=== PATIENT | male | born 1930 | race Caucasian/White ===

== ENCOUNTER → 2016-11-01 | Outpatient (CLI) | payer MEDICARE ==
[~2016-11-01] MED LIST: ASP81TEC PO; ATEN25TA PO; LISI20TA PO; LORA0.5T PO; LOVA40TA2 PO; NIFEDICAL XL PO; TRAM-21 PO; TRAM50TA2 PO
--- OUTSIDE RECORDS SUMMARY | 2016-11-01 11:25 | XMS REPORT | Continuity of Care Document ---
Author Author [facility] Organization [facility] Address Unknown Phone Unavailable Care Team Providers Care Forestry Supervisor Name Role Phone XANDER HAGEN MD PCP Insurance Providers Payer Name Policy Number Subscriber Name Relationship Wps Medicare [id number] Axel Richter 18 Self / Same As Patient Blue Cross [facility] Supp [id number] Axel Richter 18 Self / Same As Patient Advance Directives Directive Response Recorded Date/Time Advance Directives No 06/11/14 7:20am Health Care Power of Resource Manager Forester No 06/11/14 7:20am Organ Donor No 06/11/14 7:20am Resuscitation Status Full Code 06/11/14 7:20am Problems No known problems or medical conditions. Medications Medication Dose Route Sig Days/Qty Instructions Order Date Discontinued Date Status Atenolol 1 Each PO DAILY 06/04/13 Active [Nifedical Xl] 30 Mg PO DAILY 06/04/13 Active Lisinopril 20 Mg PO DAILY 06/04/13 Active Lorazepam (Ativan) 1 Each PO BEDTIME 06/04/13 Active Lovastatin (Mevacor) 1 Each PO DAILY WITH SUPPER 06/04/13 Active Aspirin 81 Mg PO DAILY 06/04/13 Active Social History Social History Problem Response Recorded Date/Time Recent Foreign Travel No 06/11/2014 6:12am Smoking Status Former Smoker 06/11/2014 7:20am Query Response Start Date Stop Date Smoking Status Former Smoker 08/26/1974 Hospital Discharge Instructions No hospital discharge instructions. Plan of Care No plan of care. Functional Status No functional status results. Allergies, Adverse Reactions, Alerts Allergen Type Severity Reaction Status Last Updated Penicillins ([id number]) Allergy Active 06/04/13 Codeine Allergy Active 06/04/13 Immunizations Name Given Type Date of Influenza Vaccine 06/07/14 Historical Vital Signs Acute Vital Signs Vital Response Date/Time Temperature (Fahrenheit) 96.4 degrees F (97.6 - 99.5) Temperature (Calculated Celsius) 35.37234 degrees C (36.4 - 37.5) Temperature Source Tympanic Pulse Rate (adult) 64 bpm (60 - 90) Respiratory Rate 16 bpm (12 - 24) O2 Sat by Pulse Oximetry 97 % (88 - 100) Blood Pressure 157/83 mm Hg Pain Pain Intensity 3 Height (Feet) 5 feet Height (Inches) 11.00 inches Height (Calculated Centimeters) 180.383490 cm Weight (Pounds) 169 pounds Weight (Calculated Grams) 47853.111 gm Weight (Calculated Kilograms) 76.475628 kilograms Calculated BMI 22.31 Results Test Source Date Result Interp. Ref. Range Comments MRSA Screen Nasal June 04, 2013 9:05am MRSA not isolated Procedures Procedure Status Date Provider(s) Excision of lesion completed 06/11/14 CM BUI MD Encounters Encounter Location Date/Time Registered Clinic [facility] 06/04/14 10:40am Registered Clinic [facility] 05/17/14 11:46am
[2016-11-01 11:35] LABS: BASOPHILS # (AUTO) 0.1 10^3/uL (0.0-0.1); BASOPHILS % (AUTO) 1 % (0-10); EOSINOPHILS # (AUTO) 0.7 10^3/uL (0.0-0.3); EOSINOPHILS % (AUTO) 7 % (0-10); LYMPHOCYTES # (AUTO) 4.5 X 10^3 (1.0-4.0); LYMPHOCYTES % (AUTO) 45 % (12-44); MEAN CORPUSCULAR HEMOGLOBIN 31 PG (25-34); MEAN CORPUSCULAR HGB CONC 33 G/DL (32-36); MEAN CORPUSCULAR VOLUME 92 FL (80-99); MONOCYTES # (AUTO) 0.8 X 10^3 (0.0-1.0); MONOCYTES % (AUTO) 8 % (0-12); NEUTROPHILS # (AUTO) 3.9 X 10^3 (1.8-7.8); NEUTROPHILS % (AUTO) 40 % (42-75); PLATELET COUNT 233 10^3/uL (130-400); RED BLOOD COUNT 4.54 10^6/uL (4.35-5.85); RED CELL DISTRIBUTION WIDTH 13.7 % (10.0-14.5); WHITE BLOOD COUNT 9.9 10^3/uL (4.3-11.0)
[2016-11-01 11:38] LABS: PATH WILL NEED TO REVIEW SMEAR PATH TO REVIEW
[2016-11-01 11:58] LABS: BAND NEUTROPHILS 2 %; BASOPHILS % (MANUAL) 1 %; EOSINOPHILS % (MANUAL) 5 %; LYMPHOCYTES % (MANUAL) 45 %; NEUTROPHILS % (MANUAL) 40 %; REACTIVE LYMPHOCYTES 1 %
== END ==
LOC: LAB 11:16
PROVIDERS: ATTEND Internal Medicine
DX: D72.829 Elevated white blood cell count, unspecified (principal)
CPT/HCPCS: 36415; 85007; 85027; 85045

== ENCOUNTER → 2017-11-21 | Outpatient (CLI) | payer MEDICARE ==
[~2017-11-21] MED LIST changes: +CATHETER FLUSH 10 ML SYR IV PRN; +REGADENOSON 0.4 MG/5 ML SYR (LEXISCAN) IV ONE
[2017-11-21 09:25] VITALS: BP 160/87
[2017-11-21 09:33] VITALS: BP 133/75
--- NOTE | 2017-11-21 14:07 | STRESS TEST ---
DATE OF SERVICE: 11/21/2017 PROCEDURE PERFORMED: Resting and post regadenoson technetium-99m Tetrofosmin SPECT CT imaging. ORDERING PHYSICIAN: Brit Manzano MD, ANTHONY, JIMMY, FACC. PRIMARY PHYSICIAN: Dr. Avalos. CLINICAL DIAGNOSES: Premature ventricular contractions, abnormal electrocardiogram. DESCRIPTION OF PROCEDURE: Baseline images were carried out after injection of 10.46 mCi technetium-99m Tetrofosmin. This was followed by 0.4 mcg regadenoson and 28.8 mCi technetium-99m Tetrofosmin for stress imaging. The electrocardiogram showed sinus rhythm with isolated premature ventricular contractions throughout the study. The electrocardiogram did not change significantly with the regadenoson infusion. The patient had mild shortness of breath and stomach discomfort following regadenoson infusion, which resolved in a few minutes. Review of images at rest and following stress indicates an inferoseptal defect that is seen both at rest and following regadenoson infusion and is probably related to diaphragmatic attenuation. Gated images show normal global systolic function, normal regional wall motion, including the inferoseptal wall. Left ventricular ejection fraction is 54%. Left ventricular end diastolic volume is 72 mL. TID is absent (1.03). CONCLUSIONS: 1. No evidence of significant myocardial ischemia or infarction on this study. 2. Normal regional wall motion. 3. Normal global left ventricular systolic function with a calculated ejection fraction of 54%. Job ID: [id number] DocumentID: [id number] Dictated Date: 11/21/2017 13:52:10 Negative Stripper Date: 11/21/2017 14:06:31 Dictated By: BRIT MANZANO MD, ANTHONY, MARCELLOP, FACC,
== END ==
LOC: CARD 07:22
PROVIDERS: ATTEND Internal Medicine Cardiovascular Disease
DX: R00.2 Palpitations (principal); I10 Essential (primary) hypertension; I49.3 Ventricular premature depolarization
CPT/HCPCS: 78452; 93017

== ENCOUNTER 2018-12-06 09:08 | Emergency (ER) | payer MEDICARE ==
[~2018-12-06] VITALS: Ht 180.3 cm; Wt 72.6 kg
[~2018-12-06 09:08] MED LIST changes: -CATHETER FLUSH 10 ML SYR IV PRN; -REGADENOSON 0.4 MG/5 ML SYR (LEXISCAN) IV ONE
--- OUTSIDE RECORDS SUMMARY | 2018-12-06 09:15 | XMS REPORT | Continuity of Care Document ---
Author Organization Unknown Address Unknown Allergies Active Description Code Type Severity Reaction Onset Reported/Identified Relationship to Patient Clinical Status Yes adhesive [id number] Drug Allergy Unknown N/A 01/14/2015 Yes codeine [id number] Drug Allergy Unknown N/A 01/14/2015 Yes Penicillins [id number] Drug Allergy Unknown N/A 01/14/2015 Yes Penicillins [id number] Drug Allergy Mild GIVES HIM TUNNE 04/15/2015 Medications There is no data. Problems Date Dx Coded Attending Type Code Diagnosis Diagnosed By 06/09/2013 NITO TRACY, GOVIND Snow Ot 173.41 06/09/2013 GOVIND BEAUCHAMP MD Ot 173.51 06/11/2014 HAO TRACY, CM Block Ot 173.31 06/11/2014 CM BUI MD Ot 173.41 10/20/2014 TATYANA JOY MOVE COORDINATOR Ot 272.4 10/20/2014 TATYANA JOY MOVE COORDINATOR Ot 401.9 10/20/2014 TATYANA JOY MOVE COORDINATOR Ot 794.31 11/18/2014 Ot 272.4 11/18/2014 Ot 401.9 11/18/2014 Ot 729.81 11/18/2014 Ot 785.9 11/18/2014 Ot 794.31 11/18/2014 Ot V45.73 11/18/2014 Ot 272.4 11/18/2014 Ot 401.9 11/18/2014 Ot 729.81 11/18/2014 Ot 785.9 11/18/2014 Ot 794.31 11/18/2014 Ot V45.73 01/21/2015 NITO TRACY, GOVIND Snow Ot 173.61 01/21/2015 GOVIND BEAUCHAMP MD Ot 401.9 02/03/2015 BRAIN TRACY, PEYTON Shoemaker Ot 189.0 02/03/2015 BRAIN TRACY, PEYTON Shoemaker Ot 593.2 02/15/2015 BRAIN MD, PEYTON A Ot 189.0 02/15/2015 BRAIN TRACY, PEYTON A Ot 593.2 04/15/2015 NITO TRACY, GOVIND Snow Ot 709.9 04/15/2015 NITO TRACY, GOVIND M Ot V72.83 04/15/2015 NITO TRACY, GOVIND M Ot V74.8 04/15/2015 BRAIN TRACY, PEYTON A Ot 189.0 04/15/2015 BRAIN TRACY, PEYTON A Ot 593.2 04/15/2015 DAPHNIE SANCHES APRN Ot 729.81 04/15/2015 BRAIN TRACY, PEYTON A Ot 189.0 04/15/2015 BRAIN TRACY, PEYTON A Ot 753.10 04/15/2015 BRAIN TRACY, PEYTON A Ot V45.73 04/15/2015 TATYANA JOY MOVE COORDINATOR Ot 272.4 04/15/2015 TATYANA JOY MOVE COORDINATOR Ot 401.9 04/15/2015 TATYANA JOY MOVE COORDINATOR Ot 794.31 04/15/2015 HAO TRACY, CM P Ot 709.9 04/15/2015 HAO TRACY, CM P Ot 793.19 04/15/2015 HAO TRACY, CM P Ot V72.63 04/15/2015 HAO TRACY, CM P Ot V72.81 04/15/2015 HAO TRACY, CM P Ot V74.8 04/15/2015 Ot 272.4 04/15/2015 Ot 401.9 04/15/2015 Ot 729.81 04/15/2015 Ot 785.9 04/15/2015 Ot 794.31 04/15/2015 Ot V45.73 04/15/2015 BRAIN TRACY, PEYTON A Ot 189.0 04/15/2015 BRAIN TRACY, PEYTON A Ot 593.2 04/15/2015 NITO TRACY, GOVIND Snow Ot 709.9 04/15/2015 NITO TRACY, GOVIND Snow Ot V72.83 04/15/2015 NITO RTACY, GOVIND M Ot V74.8 04/15/2015 NITO TRACY, GOVIND M Ot 709.9 04/15/2015 NITO TRACY, GOVIND M Ot V72.84 04/15/2015 NITO TRACY, GOVIND Snow Ot V74.8 04/15/2015 NITO TRACY, GOVIND M Ot 173.71 04/15/2015 NITO TRACY, GOVIND Snow Ot 709.9 04/15/2015 NITO TRACY, GOVIND Snow Ot V58.69 04/29/2015 NITO TRACY, GOVIND M Ot 173.71 09/01/2015 DAPHNIE SANCHES WOOL CLASSER Ot M79.89 09/07/2015 DAPHNIE SANCHES WOOL CLASSER Ot M79.89 07/05/2016 DAPHNIE SANCHES WOOL CLASSER Ot M79.89 OTHER SPECIFIED SOFT TISSUE DISORDERS 07/05/2016 NITO TRACY, GOVIND Snow Ot L98.9 DISORDER OF THE SKIN AND SUBCUTANEOUS TI 07/05/2016 NITO TRACY, GOVIND Snow Ot Z01.818 ENCOUNTER FOR OTHER PREPROCEDURAL EXAMIN 07/05/2016 GOVIND BEAUCHAMP MD Ot Z11.2 ENCOUNTER FOR SCREENING FOR OTHER BACTER 07/06/2016 GOVIND BEAUCHAMP MD Ot L98.9 DISORDER OF THE SKIN AND SUBCUTANEOUS TI 07/06/2016 GOVIND BEAUCHAMP MD Ot Z01.818 ENCOUNTER FOR OTHER PREPROCEDURAL EXAMIN 07/06/2016 GOVIND BEAUCHAMP MD Ot Z11.2 ENCOUNTER FOR SCREENING FOR OTHER BACTER 07/11/2016 DAPHNIE SANCHES WOOL CLASSER Ot M79.89 OTHER SPECIFIED SOFT TISSUE DISORDERS 07/11/2016 NITO TRACY, GOVIND Snow Ot C44.619 BASAL CELL CARCINOMA SKIN/ LEFT UPPER LI 07/12/2016 GOVIND BEAUCHAMP MD Ot C44.619 BASAL CELL CARCINOMA SKIN/ LEFT UPPER LI 07/12/2016 GOVIND BEAUCHAMP MD Ot C44.619 BASAL CELL CARCINOMA SKIN/ LEFT UPPER LI 11/22/2016 XIAO TRACY, XANDER Neri Ot D72.829 ELEVATED WHITE BLOOD CELL COUNT, UNSPECI 11/27/2017 DEE DEE TRACY FACC, LESLY FACP CCDS Ot I10 ESSENTIAL (PRIMARY) HYPERTENSION 11/27/2017 DEE DEE TRACY FACC, LESLY FACP CCDS Ot I49.3 VENTRICULAR PREMATURE DEPOLARIZATION 11/27/2017 DEE DEE TRACY FACC, LESLY FACP CCDS Ot R00.2 PALPITATIONS 12/18/2017 DEE DEE TRACY FACC, LESLY FACP CCDS Ot I10 ESSENTIAL (PRIMARY) HYPERTENSION 12/18/2017 DEE DEE TRACY [facility], ALI FACP CCDS Ot I49.3 VENTRICULAR PREMATURE DEPOLARIZATION 12/18/2017 DEE DEE TRACY [facility], ALI FACP CCDS Ot R00.2 PALPITATIONS 12/25/2017 DEE DEE TRACY FACC, ALI FACP CCDS Ot I10 ESSENTIAL (PRIMARY) HYPERTENSION 12/25/2017 DEED EE TRACY FACC, ALI FACP CCDS Ot I49.3 VENTRICULAR PREMATURE DEPOLARIZATION 12/25/2017 DEE DEE ARMENDARIZ, ALI FACP CCDS Ot R00.2 PALPITATIONS 01/14/2018 BAIMA, TATYANA L MOVE COORDINATOR Ot E78.5 HYPERLIPIDEMIA, UNSPECIFIED 01/14/2018 BAIMA, TATYANA L MOVE COORDINATOR Ot I08.0 RHEUMATIC DISORDERS OF BOTH MITRAL AND A 01/14/2018 BAIMA, TATYANA L MOVE COORDINATOR Ot I10 ESSENTIAL (PRIMARY) HYPERTENSION 01/14/2018 BAIMA, TATYANA L MOVE COORDINATOR Ot I47.1 SUPRAVENTRICULAR TACHYCARDIA 01/14/2018 BAIMA, TATYANA L MOVE COORDINATOR Ot I47.2 VENTRICULAR TACHYCARDIA 01/22/2018 BAIMA, TATYANA L MOVE COORDINATOR Ot E78.5 HYPERLIPIDEMIA, UNSPECIFIED 01/22/2018 BAIMA, TATYANA L MOVE COORDINATOR Ot I08.0 RHEUMATIC DISORDERS OF BOTH MITRAL AND A 01/22/2018 BAIMA, TATYANA L MOVE COORDINATOR Ot I10 ESSENTIAL (PRIMARY) HYPERTENSION 01/22/2018 BAIMA, TATYANA L MOVE COORDINATOR Ot I47.1 SUPRAVENTRICULAR TACHYCARDIA 01/22/2018 BAIMA, TATYANA L MOVE COORDINATOR Ot I47.2 VENTRICULAR TACHYCARDIA Procedures There is no data. Results Test Result Range Methicillin resistant Staphylococcus aureus (MRSA) screening culture - 09:50 Methicillin resistant Staphylococcus aureus (MRSA) screening culture NEG NRG Blood CBC with ordered manual differential panel - 11/01/16 11:27 Blood leukocytes automated count (number/volume) 9.9 10*3/uL 4.3-11.0 Blood erythrocytes automated count (number/volume) 4.54 10*6/uL 4.35-5.85 Venous blood hemoglobin measurement (mass/volume) 13.9 g/dL 13.3-17.7 Blood hematocrit (volume fraction) 42 % 40-54 Automated erythrocyte mean corpuscular volume 92 [foz_us] 80-99 Automated erythrocyte mean corpuscular hemoglobin (mass per erythrocyte) 31 pg 25-34 Automated erythrocyte mean corpuscular hemoglobin concentration measurement ( mass/volume) 33 g/dL 32-36 Automated erythrocyte distribution width ratio 13.7 % 10.0-14.5 Automated blood platelet count (count/volume) 233 10*3/uL 130-400 Automated blood platelet mean volume measurement 10.0 [foz_us] 7.4-10.4 Automated blood neutrophils/100 leukocytes 40 % 42-75 Automated blood lymphocytes/100 leukocytes 45 % 12-44 Blood monocytes/100 leukocytes 6 % NRG Automated blood eosinophils/100 leukocytes 7 % 0-10 Automated blood basophils/100 leukocytes 1 % 0-10 Blood neutrophils automated count (number/volume) 3.9 10*3 1.8-7.8 Blood lymphocytes automated count (number/volume) 4.5 10*3 1.0-4.0 Blood monocytes automated count (number/volume) 0.8 10*3 0.0-1.0 Automated eosinophil count 0.7 10*3/uL 0.0-0.3 Automated blood basophil count (count/volume) 0.1 10*3/uL 0.0-0.1 Manual blood segmented neutrophils/100 leukocytes 40 % NRG Blood band neutrophils/100 leukocytes 2 % NRG Manual blood lymphocytes/100 leukocytes 45 % NRG Manual eosinophils/100 leukocytes in nose 5 % NRG Manual blood basophils/100 leukocytes 1 % NRG Blood lymphocytes variant/100 leukocytes 1 % NRG Blood erythrocyte morphology finding identification NORMAL NRG Automated reticulocyte percentage - 11/01/16 11:27 Blood reticulocytes count (number/volume) 36 10*9/L 24- 90 Blood reticulocytes/100 erythrocytes 0.80 % 0.50-2.40 Encounters ACCT No. Visit Date/Time Discharge Status Pt. Type Provider Facility Loc./Unit Complaint [id number] 12/24/2017 11:33:00 12/24/2017 23:59:59 CLS Outpatient TATYANA JOY [facility] CARD WIDE COMPLEX TACHYCARDIA [id number] 11/21/2017 07:22:00 11/21/2017 23:59:59 CLS Outpatient DEE DEE TRACY FACC, LESLY MARQUEZ CCDS [facility] CARD PVC [id number] 11/01/2016 11:16:00 11/01/2016 23:59:59 CLS Outpatient XANDER HAGEN MD [facility] LAB LEUKOCYTOSIS [id number] 07/11/2016 09:24:00 07/11/2016 14:55:00 DIS Outpatient GOVIND BEAUCHAMP MD [facility] LESION LEFT FOREARM [id number] 07/05/2016 08:59:00 07/05/2016 09:57:00 DIS Outpatient GOVIND BEAUCHAMP MD [facility] PREOP LESION LEFT FOREARM [id number] 08/11/2015 11:50:00 08/11/2015 23:59:59 CLS Outpatient DAPHNIE SANCHES APRN [facility] RAD SWELLING, PAIN, DECREASED ROM, [id number] 04/29/2015 06:21:00 04/29/2015 11:05:00 DIS Outpatient GOVIND BEAUCHAMP MD [facility] [id number] 04/28/2015 05:58:00 04/28/2015 23:59:59 CLS Outpatient GOVIND BEAUCHAMP MD [facility] PREOP [id number] 04/15/2015 08:17:00 04/15/2015 12:55:00 DIS Outpatient GOVIND BEAUCHAMP MD [facility] [id number] 04/11/2015 08:58:00 04/11/2015 23:59:59 CLS Outpatient GOVIND BEAUCHAMP MD [facility] PREOP [id number] 01/21/2015 07:16:00 01/21/2015 10:45:00 DIS Outpatient GOVIND BEAUCHAMP MD [facility] [id number] 01/14/2015 09:59:00 01/14/2015 23:59:59 CLS Outpatient GOVIND BEAUCHAMP MD [facility] PREOP [id number] 01/10/2015 08:40:00 01/10/2015 23:59:59 CLS Outpatient PEYTON DE LA PAZ MD [facility] RAD [id number] 06/11/2014 06:12:00 06/11/2014 13:28:00 DIS Outpatient CM BUI MD [facility] [id number] 06/04/2014 10:40:00 06/04/2014 23:59:59 CLS Outpatient HAO TRACY, CM Block [facility] PREOP [id number] 05/17/2014 11:46:00 05/17/2014 23:59:59 CLS Outpatient TATYANA JOY [facility] CARD [id number] 01/15/2014 09:43:00 01/15/2014 23:59:59 CLS Outpatient BRAIN TRACY, PEYTON Shoemaker [facility] RAD [id number] 10/13/2013 09:32:00 10/13/2013 23:59:59 CLS Outpatient DAPHNIE SANCHES APRN [facility] RAD [id number] 06/09/2013 06:00:00 06/09/2013 11:20:00 DIS Outpatient NITO TRACY, GOVIND Snow [facility] [id number] 06/08/2013 07:52:00 06/08/2013 23:59:59 CLS Outpatient BRAIN TRACY, PEYTON Shoemaker [facility] RAD [id number] 06/04/2013 08:26:00 06/04/2013 23:59:59 CLS Outpatient GOVIND BEAUCHAMP MD [facility] PREOP [id number] 12/06/2018 09:10:00 ACT Emergency MAGGY TRACY, BETTINA Justin [facility] ER SYNCOPE [id number] 10/22/2014 13:41:00 Document Registration [id number] 04/29/2015 09:14:11 ACT Document Registration
--- NOTE | 2018-12-06 09:26 | NUR ---
SEE LIST FOR CURRENT MEDS
[2018-12-06 09:39] LABS: BASOPHILS # (AUTO) 0.1 10^3/uL (0.0-0.1); BASOPHILS % (AUTO) 1 % (0-10); EOSINOPHILS # (AUTO) 0.6 10^3/uL (0.0-0.3); EOSINOPHILS % (AUTO) 4 % (0-10); HEMATOCRIT 43 % (40-54); HEMOGLOBIN 14.5 G/DL (13.3-17.7); LYMPHOCYTES # (AUTO) 4.5 X 10^3 (1.0-4.0); LYMPHOCYTES % (AUTO) 34 % (12-44); MEAN CORPUSCULAR HEMOGLOBIN 31 PG (25-34); MEAN CORPUSCULAR HGB CONC 34 G/DL (32-36); MEAN CORPUSCULAR VOLUME 92 FL (80-99); MEAN PLATELET VOLUME 10.1 FL (7.4-10.4); MONOCYTES # (AUTO) 0.8 X 10^3 (0.0-1.0); MONOCYTES % (AUTO) 6 % (0-12); NEUTROPHILS # (AUTO) 7.3 X 10^3 (1.8-7.8); NEUTROPHILS % (AUTO) 55 % (42-75); PLATELET COUNT 220 10^3/uL (130-400); RED CELL DISTRIBUTION WIDTH 14.3 % (10.0-14.5); WHITE BLOOD COUNT 13.2 10^3/uL (4.3-11.0)
--- NOTE | 2018-12-06 09:40 | ED Neurological Problem ---
General Chief Complaint: Dizziness/Syncope Stated Complaint: SYNCOPE Nursing Triage Note: PT ARRIVED PER EMS, PT AWAKE AND ALERT, PT HAS SYNCOPAL EPISODE AT HOME, WHILE SITTING IN CHAIR AFTER EATING BREAKFAST, PT STATES HAD GOTTEN DIZZY. DENIES DIZZINESS AT THIS X. PT HAS SL IN R AC. PT DENIES PAIN @THIS X Nursing Sepsis Screen: No Definite Risk Source: patient, family, EMS Exam Limitations: no limitations History of Present Illness Date Seen by Provider: Dec 06, 2018 Time Seen by Provider: 09:35 Initial Comments This 88-year-old white male presents after having had strokelike symptoms at home this morning. The patient had finished breakfast and was watching TV when he became dizzy. His gilqfj-pt-sms who was in the house with him stated that he became progressively less responsive. The patient was unable to answer simple questions. He demonstrated in comprehensible and slurred speech. There was no gross lateralizing or localizing neurologic findings. On director game arrival the patient's symptoms largely abated. The patient had no syncopal episode, complaints of palpitations or chest pain, headache, visual changes, or lateralizing or localizing neurologic complaints. Significant past medical history includes a nephrectomy, skin cancers primarily of the face, and periodic evaluation by cardiology without previous myocardial infarction or intervention. Allergies and Home Medications Allergies Coded Allergies: adhesive (Unverified Allergy, Unknown, 01/14/15) codeine (Unverified Allergy, Unknown, 01/14/15) Penicillins (Unverified Adverse Reaction, Mild, GIVES HIM TUNNEL VISION, ) Home Medications Aspirin 81 Mg Tabec, 81 MG PO DAILY, (Reported) Atenolol 25 Mg Tablet, 1 EACH PO DAILY, (Reported) Lisinopril 20 Mg Tablet, 20 MG PO DAILY, (Reported) Lorazepam 0.5 Mg Tablet, 1 EACH PO HS, (Reported) Lovastatin 40 Mg Tablet, 1 EACH PO DAILY WITH SUPPER, (Reported) Tramadol HCl 50 Mg Tablet, 50 MG PO Q12H PRN for PAIN Prescribed by: GOVIND BEAUCHAMP on 07/11/16 1308 [Nifedical Xl] , 30 MG PO DAILY, (Reported) Patient Home Medication List Home Medication List Reviewed: Yes Review of Systems Review of Systems Constitutional: No chills, No fever Eyes: Denies Blurred Vision Ears, Nose, Mouth, Throat: denies ear pain Respiratory: No cough Cardiovascular: No chest pain, No palpitations Gastrointestinal: No abdominal pain, No diarrhea, No nausea, No vomiting Genitourinary: No dysuria, No frequency Musculoskeletal: No back pain Skin: No change in color, No rash Psychiatric/Neurological: No Symptoms Reported Endocrine: No Symptoms Reported Hematologic/Lymphatic: No Symptoms Reported Past Dpkyfpd-Whhufw-Rjmwfj Hx Past Med/Social Hx: Reviewed Nursing Past Med/Soc Hx Patient Social History Alcohol Use: Denies Use Recreational Drug Use: No Smoking Status: Never a Smoker Type Used: Cigarettes Former Smoker, Quit: Jul 05, 1975 Recent Foreign Travel: No Contact w/Someone Who Travel: No Recent Infectious Disease Expo: No Recent Hopitalizations: No Immunizations Up To Date Tetanus Booster (TDap): Less than 5yrs Date of Pneumonia Vaccine: Feb 02, 2016 Date of Influenza Vaccine: May 28, 2016 Seasonal Allergies Seasonal Allergies: No Past Medical History Surgeries: Yes (LEFT KIDNEY REMOVED, SKIN CANCER REMOVED x30 ) Appendectomy, Vasectomy Respiratory: No Pneumonia Cardiac: Yes High Cholesterol, Hypertension Neurological: No Reproductive Disorders: No Sexually Transmitted Disease: No HIV/AIDS: No Gastrointestinal: Yes (CONSTIPATION) Chronic Constipation Musculoskeletal: No Endocrine: No Loss of Vision: Bilateral Hearing Impairment: Denies Cancer: Yes Skin, Melanoma Psychosocial: No Integumentary: Yes (SKIN LESIONS) Blood Disorders: No Adverse Reaction/Blood Tranf: No Physical Exam Vital Signs Vital Signs - First Documented 12/06/18 09:10 Temp 97.1 Pulse 66 Resp 16 B/P (MAP) 158/87 (110) Pulse Ox 97 Capillary Refill : Less Than 3 Seconds Height, Weight, BMI Height: 5'11.00" Weight: 160lbs. 0.0oz. 72.362321sy; 23.9 BMI Method:Stated General Appearance: no apparent distress, cachetic HEENT: other Neck: supple, normal inspection Respiratory: lungs clear, normal breath sounds Cardiovascular: regular rate, rhythm Gastrointestinal: normal bowel sounds, non tender, soft Back: normal inspection, no CVA tenderness Extremities: normal range of motion, normal inspection Neurologic/Psychiatric: no motor/sensory deficits, alert, normal mood/affect Motor/Sensory: no motor deficit, no sensory deficit Skin: normal color, warm/dry Progress/Results/Core Measures Results/Orders Lab Results Laboratory Tests Test 12/06/18 09:11 12/06/18 09:53 12/06/18 10:29 Range/Units White Blood Count 13.2 H 4.3-11.0 10^3/uL Red Blood Count 4.66 4.35-5.85 10^6/uL Hemoglobin 14.5 13.3-17.7 G/DL Hematocrit 43 40-54 % Mean Corpuscular Volume 92 80-99 FL Mean Corpuscular Hemoglobin 31 25-34 PG Mean Corpuscular Hemoglobin Concent 34 32-36 G/DL Red Cell Distribution Width 14.3 10.0-14.5 % Platelet Count 220 130-400 10^3/uL Mean Platelet Volume 10.1 7.4-10.4 FL Neutrophils (%) (Auto) 55 42-75 % Lymphocytes (%) (Auto) 34 12-44 % Monocytes (%) (Auto) 6 0-12 % Eosinophils (%) (Auto) 4 0-10 % Basophils (%) (Auto) 1 0-10 % Neutrophils # (Auto) 7.3 1.8-7.8 X 10^3 Lymphocytes # (Auto) 4.5 H 1.0-4.0 X 10^3 Monocytes # (Auto) 0.8 0.0-1.0 X 10^3 Eosinophils # (Auto) 0.6 H 0.0-0.3 10^3/uL Basophils # (Auto) 0.1 0.0-0.1 10^3/uL Prothrombin Time 13.0 12.2-14.7 SEC INR Comment 1.0 0.8-1.4 Activated Partial Thromboplast Time 29 24-35 SEC D-Dimer 0.76 H 0.00-0.49 UG/ML Sodium Level 140 135-145 MMOL/L Potassium Level 3.9 3.6-5.0 MMOL/L Chloride Level 104 98-107 MMOL/L Carbon Dioxide Level 25 21-32 MMOL/L Anion Gap 11 5-14 MMOL/L Blood Urea Nitrogen 21 H 7-18 MG/DL Creatinine 1.49 H 0.60-1.30 MG/DL Estimat Glomerular Filtration Rate 45 BUN/Creatinine Ratio 14 Glucose Level 124 H 70-105 MG/DL Calcium Level 9.3 8.5-10.1 MG/DL Corrected Calcium 9.2 8.5-10.1 MG/DL Total Bilirubin 0.7 0.1-1.0 MG/DL Aspartate Amino Transf (AST/SGOT) 19 5-34 U/L Alanine Aminotransferase (ALT/SGPT) 14 0-55 U/L Alkaline Phosphatase 67 40-136 U/L Troponin I < 0.028 <0.028 NG/ML Total Protein 6.9 6.4-8.2 GM/DL Albumin 4.1 3.2-4.5 GM/DL Glucometer 107 70-110 MG/DL My Orders Orders - BETTINA WINTER MD Cbc With Automated Diff (12/06/18:) Protime With Inr (12/06/18:) Partial Thromboplastin Time (12/06/18) Comprehensive Metabolic Panel (12/06/18) Fibrin Degradation Products (12/06/18) Troponin I (12/06/18) Ua Culture If Indicated (12/06/18:) Chest 1 View, Ap/Pa Only (12/06/18:) Ekg Tracing (12/06/18:) Nothing By Mouth (12/06/18 Lunch) Accucheck Stat ONCE (12/06/18:) Ed Iv/Invasive Line Start (12/06/18:) Ed Iv/Invasive Line Start (12/06/18:) Vital Signs Stroke Patient Q15M (12/06/18:32) Ct Head Wo-R/O Stroke (12/06/18:32) O2 (12/06/18:) Intake & Output 06,14,22 (12/06/18:) Monitor-Rhythm Ecg Trace Only (12/06/18:32) Dysphagia Screening Tool (12/06/18:) Post Thrombolytic Adminstratio (12/06/18:) Lipid Panel (12/07/18 06:00) Vital Signs/I&O 12/06/18 09:10 Temp 97.1 Pulse 66 Resp 16 B/P (MAP) 158/87 (110) Pulse Ox 97 Blood Pressure Mean: 110 Progress Progress Note : Time: 10:41 Progress Note The patient's laboratory evaluation demonstrated no significant abnormalities. Patient had moderate renal impairment. His white count was elevated at 13,000. Patient's EKG demonstrated a normal sinus rhythm with a single PVC. CT of the head demonstrated no evidence of acute pathology. The possibility of an aneurysm in the vertebrobasilar system was raised by the patient's radiologist. The patient's symptoms had spontaneously abated by the time paramedics arrived this morning. Patient remained on change during his evaluation in the emergency department. I discussed the patient's presentation with he and his family. I believe the patient had had a TIA which resolved. He is currently on aspirin. I believe it's judgment call whether urine and Plavix to this patient. I would ask that he see his primary care physician on Saturday to make this determination. I invited the patient to return to the emergency department. Further problems or questions. Departure Impression Primary Impression: TIA (transient ischemic attack) Disposition: HOME, SELF-CARE Condition: Improved Departure-Patient Inst. Decision time for Depature: 10:44 Referrals: XANDER HAGEN MD (PCP/Family) Primary Care Physician Patient Instructions: Transient Ischemic Attack (DC) Add. Discharge Instructions: Follow-up with your doctor on Saturday. Continue regular medications as prescribed. Return if any problems or questions. All discharge instructions reviewed with patient and/or family. Voiced understanding. BETTINA WINTER MD Dec 06, 2018 09:40
[2018-12-06 09:53] LABS: ALANINE AMINOTRANSFERASE 14 U/L (0-55); ALBUMIN 4.1 GM/DL (3.2-4.5); ALKALINE PHOSPHATASE 67 U/L (40-136); BILIRUBIN,TOTAL 0.7 MG/DL (0.1-1.0); BUN/CREATININE RATIO 14; CALCIUM 9.3 MG/DL (8.5-10.1); CARBON DIOXIDE 25 MMOL/L (21-32); CHLORIDE 104 MMOL/L (98-107); CREATININE SERUM 1.49 MG/DL (0.60-1.30); GFR ESTIMATED 45; GLUCOSE 124 MG/DL (70-105); POTASSIUM 3.9 MMOL/L (3.6-5.0); SODIUM 140 MMOL/L (135-145); TOTAL PROTEIN 6.9 GM/DL (6.4-8.2)
--- NOTE | 2018-12-06 10:08 | Diagnostic Imaging Report ---
Clinical dictation: Patient with stroke, dizzy, and syncope. Exam: Portable chest x-ray upright view. Comparisons: Chest x-ray dated 01/10/2015. Findings: Lungs/pleura: There is mild bibasilar atelectasis or scarring. There is again seen slight elevation of the left hemidiaphragm. There is no pneumothorax. There is no pleural effusion. Mediastinum: Unremarkable. Pulmonary vasculature: Unremarkable. Heart: Cardiac silhouette is within normal limits for portable projection. Bones/extrathoracic soft tissue: There are hypertrophic spurs involving the thoracic spine and right curvature of the thoracolumbar spine. Impression: Interval mild bibasilar atelectasis or scarring. Otherwise, there is no radiographic evidence of acute cardiopulmonary process. Dictated by: Dictated on workstation # [id number]
--- NOTE | 2018-12-06 10:21 | Diagnostic Imaging Report ---
Clinical indication: Patient felt faint this morning. No head complaints. Patient's history of kidney cancer and skin cancer. Exam: Axial CT scan of the brain without IV contrast with coronal reformatted images. Comparison: None. Findings: There is no evidence of acute cerebral infarct, intracranial hemorrhage, or gross mass effect. There is diffuse brain parenchymal volume loss seen. 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 There is normal blanco-white matter distinction. There is no significant midline shift or herniation. 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 There is slight bulbous appearance of the basilar summit. There is no evidence of hydrocephalus. The basal cisterns are unremarkable. The skull, extracranial soft tissue, and orbits are unremarkable. The paranasal sinuses are unremarkable. Temporal bones show no significant abnormality. 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 An aneurysm cannot be completely excluded. Comparison with prior brain imaging would help better evaluate. CT angiogram of the head would better evaluate. 2: Otherwise, there is no CT evidence of acute cerebral infarct, intracranial hemorrhage, brain herniation, or hydrocephalus. 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 The results of this report were discussed with Dr. Cruz Stanford via the telephone on 12/06/2909 at 1010 hrs. Dictated by: Dictated on workstation # [id number]
[2018-12-06 10:26] LABS: FIBRIN DEGRADATION PRODUCTS 0.76 UG/ML (0.00-0.49)
[2018-12-06 10:52] LABS: BILIRUBIN,URINE NEGATIVE (NEGATIVE); CLARITY,URINE CLEAR; COLOR,URINE YELLOW; GLUCOSE, URINE (UA) NEGATIVE (NEGATIVE); KETONES,URINE NEGATIVE (NEGATIVE); LEUKOCYTE ESTERASE ,URINE NEGATIVE (NEGATIVE); NITRITE,URINE NEGATIVE (NEGATIVE); PH,URINE 6.5 (5-9); PROTEIN,URINE 3+ (NEGATIVE); RBC,URINE 0-2 /HPF; UROBILINOGEN,URINE NORMAL (NORMAL); WBC,URINE 0-2 /HPF
[2018-12-06 10:53] LABS: BACTERIA,URINE TRACE /HPF; HYALINE CASTS, URINE 0-2 /LPF; SQUAMOUS EPITHELIAL CELL,UR 0-2 /HPF
[2018-12-06 11:31] VITALS: BP 149/84
== END 2018-12-06 11:36 | disposition home or self-care (01) ==
LOC: EDUNIT# 09:08 → ER 09:10
DX: G45.9 Transient cerebral ischemic attack, unspecified (principal); E78.00 Pure hypercholesterolemia, unspecified; I10 Essential (primary) hypertension; I25.2 Old myocardial infarction; Z91.048 Other nonmedicinal substance allergy status; Z87.19 Personal history of other diseases of the digestive system; Z88.5 Allergy status to narcotic agent; Z88.0 Allergy status to penicillin; Z79.82 Long term (current) use of aspirin; Z90.5 Acquired absence of kidney; Z87.891 Personal history of nicotine dependence; Z90.49 Acquired absence of other specified parts of digestive tract; Z85.820 Personal history of malignant melanoma of skin; Z98.52 Vasectomy status; Z87.01 Personal history of pneumonia (recurrent)
CPT/HCPCS: 36415; 70450; 71045; 80053; 81000; 82962; 84484; 85025; 85379; 85610; 85730; 93005; 93041

== ENCOUNTER → 2018-12-09 | Outpatient (CLI) | payer MEDICARE ==
[~2018-12-09] MED LIST changes: +HOLD METFORMIN - RECEIVED CONTRAST 20 ML VIAL IV SCH; +IOHEXOL 350 MG/ML 100 ML (OMNIPAQUE 350) VIAL IV ONE
--- NOTE | 2018-12-09 14:06 | Diagnostic Imaging Report ---
PROCEDURE: CT angiography of the head with and without contrast. TECHNIQUE: Noncontrast CT of the head was obtained. Subsequently, after intravenous administration of contrast, thin section axial CT angiography of the head was performed. Source data was reformatted into multiple MIP reformats. Delayed postcontrast acquisition of the head was also acquired. Auto Exposure Controls were utilized during the CT exam to meet ALARA standards for radiation dose reduction. INDICATION: Abnormal appearance to the basilar tip. Study is performed to evaluate for aneurysm. Correlation is made with recent CT head study from 12/06/2018. Ventricles and sulci appear stable. Moderate periventricular hypodensity is seen consistent with senescent change. 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 There is no sulcal effacement or midline shift. No hemorrhage is seen. Delayed postcontrast imaging is without abnormal enhancement. CT angiographic portion of the study demonstrates some ectasia of the distal right vertebral artery. This does course to the left. The right vertebral artery is dominant. There is some ectasia to the basilar artery as well. However, no basilar tip aneurysm is identified. Posterior cerebral arteries are unremarkable. Carotid siphons are unremarkable. Bilateral middle cerebral arteries and anterior cerebral arteries are unremarkable. IMPRESSION: No evidence of intracranial aneurysm. Dictated by: Dictated on workstation # [id number]
== END ==
LOC: RAD 12:54
PROVIDERS: ATTEND Nurse Practitioner
DX: R93.0 Abnormal findings on diagnostic imaging of skull and head, not elsewhere classified (principal)
CPT/HCPCS: 70496

== ENCOUNTER → 2019-09-29 | Outpatient (CLI) | payer MEDICARE ==
[~2019-09-29] MED LIST changes: -HOLD METFORMIN - RECEIVED CONTRAST 20 ML VIAL IV SCH; -IOHEXOL 350 MG/ML 100 ML (OMNIPAQUE 350) VIAL IV ONE; -TRAM50TA2 PO; +TRM50T PO
[2019-09-29 11:57] LABS: HEMOGLOBIN 13.5 G/DL (13.3-17.7); MEAN PLATELET VOLUME 9.8 FL (7.4-10.4); WHITE BLOOD COUNT 10.7 10^3/uL (4.3-11.0)
[2019-09-29 12:14] LABS: ALBUMIN 4.1 GM/DL (3.2-4.5); BILIRUBIN,TOTAL 0.3 MG/DL (0.1-1.0); CALCIUM 9.1 MG/DL (8.5-10.1); CREATININE SERUM 1.6 MG/DL (0.60-1.30); POTASSIUM 4.8 MMOL/L (3.6-5.0)
--- NOTE | 2019-09-29 13:54 | Diagnostic Imaging Report ---
PROCEDURE: US right lower extremity venous. TECHNIQUE: Multiple Real-time grayscale images were obtained over the right lower extremity in various projections. Additional spectral analysis and color Doppler duplex images were also obtained. INDICATION: Right lower extremity swelling. FINDINGS: There is no evidence of right lower extremity DVT. The right lower extremity deep venous system shows normal compressibility with normal response to augmentation and Valsalva. No fluid collection or mass is detected. IMPRESSION: No evidence of right lower extremity DVT. Dictated by: Dictated on workstation # [id number]
== END ==
LOC: RAD 11:39
PROVIDERS: ATTEND Physician Assistant
DX: M79.89 Other specified soft tissue disorders (principal)
CPT/HCPCS: 36415; 80053; 85027

== ENCOUNTER 2021-02-27 11:31 | Emergency (ER) | payer MEDICARE ==
[~2021-02-27] VITALS: Ht 177.8 cm; Wt 72.6 kg
[2021-02-27 12:06] LABS: BASOPHILS # (AUTO) 0.1 10^3/uL (0.0-0.1); BASOPHILS % (AUTO) 1 % (0-10); EOSINOPHILS # (AUTO) 0.4 10^3/uL (0.0-0.3); EOSINOPHILS % (AUTO) 4 % (0-10); HEMATOCRIT 41 % (40-54); HEMOGLOBIN 13.1 g/dL (13.3-17.7); LYMPHOCYTES # (AUTO) 4.5 10^3/uL (1.0-4.0); LYMPHOCYTES % (AUTO) 47 % (12-44); MEAN CORPUSCULAR HEMOGLOBIN 31 pg (25-34); MEAN CORPUSCULAR HGB CONC 32 g/dL (32-36); MEAN CORPUSCULAR VOLUME 95 fL (80-99); MONOCYTES # (AUTO) 0.6 10^3/uL (0.0-1.0); MONOCYTES % (AUTO) 6 % (0-12); NEUTROPHILS % (AUTO) 42 % (42-75); PLATELET COUNT 208 10^3/uL (130-400); WHITE BLOOD COUNT 9.5 10^3/uL (4.3-11.0)
[2021-02-27 12:16] LABS: POTASSIUM 4.6 MMOL/L (3.6-5.0)
[2021-02-27 12:17] LABS: CALCIUM 8.9 MG/DL (8.5-10.1)
[2021-02-27 12:17] LABS: BILIRUBIN,URINE NEGATIVE (NEGATIVE); CLARITY,URINE CLEAR; COLOR,URINE YELLOW; GLUCOSE, URINE (UA) NEGATIVE (NEGATIVE); KETONES,URINE NEGATIVE (NEGATIVE); LEUKOCYTE ESTERASE ,URINE NEGATIVE (NEGATIVE); NITRITE,URINE NEGATIVE (NEGATIVE); PH,URINE 5.5 (5-9); PROTEIN,URINE 1+ (NEGATIVE)
[2021-02-27 12:20] LABS: BILIRUBIN,TOTAL 0.3 MG/DL (0.1-1.0)
[2021-02-27 12:22] LABS: CREATININE SERUM 2.18 MG/DL (0.60-1.30)
[2021-02-27 12:25] LABS: BACTERIA,URINE NEGATIVE /HPF; SQUAMOUS EPITHELIAL CELL,UR RARE /HPF
[2021-02-27] MEDS ORDERED: NS IV 1000 ML 1,000 ML IV SCH (12:45)
--- NOTE | 2021-02-27 12:55 | ED Neurological Problem ---
General Chief Complaint: Altered Mental Status Stated Complaint: AMS Nursing Triage Note: PT ARRIVED BY PRIVATE VEHICLE WITH CHIEF COMPLAINT OF ALTERED MENTAL STATUS. PT WAS PRESENT WITH . 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 PT'S STATED ONSET WAS Saturday WHEN HE FELL ASLEEP AT TABLE IN THE KITCHEN AND FELL, THEN IT HAPPENED AGAIN SATURDAY AFTERNOON. THIS MORNING IT HAPPENED A THIRD TIME AT THE TABLE AND HE WAS SOUND ASLEEP AT 0830 AND HAD KNOCKED OVER HIS COFFEE AND WAS CONFUSED/ HAD NO IDEA HE HAD DONE THAT. PT IS ALERT, AND ORIENTED X 4. PT TAKES METOPROLOL 100 MG, LISINIPRIL 20MG, LOVASTATIN 40MG, AMIODIPINE 2.5MG, LORAZEPAM 0.5MG, ASPIRIN (BABY). Source: patient Exam Limitations: no limitations (SCOTTY BERTRAND APRN) History of Present Illness Date Seen by Provider: Feb 27, 2021 Time Seen by Provider: 12:53 Initial Comments To ER accompanied by [id number] with whom he lives with reports of 4 episodes of apparent syncope over the past few days. He had a similar episode in October of this year. She states that he will be sitting in his chair eating breakfast for example this morning he spilled his coffee and did not realize it. During one of the episodes in the past few days she went into the kitchen to find that he had fallen out of his chair and was laying on the floor. She states that she will be talking to him and he will immediately drift off to sleep and began drooling. Patient himself states that he feels fine and he does not remember any of these events. Timing/Duration: 1 week Severity: moderate Associated Symptoms: fever/chills (SCOTTY BERTRAND APRN) Allergies and Home Medications Allergies Coded Allergies: adhesive (Unverified Allergy, Unknown, 01/14/15) codeine (Unverified Allergy, Unknown, 01/14/15) Penicillins (Unverified Adverse Reaction, Mild, GIVES HIM TUNNEL VISION, 04/15/15) Home Medications Aspirin 81 Mg Tabec, 81 MG PO DAILY, (Reported) Atenolol 25 Mg Tablet, 1 EACH PO DAILY, (Reported) Lisinopril 20 Mg Tablet, 20 MG PO DAILY, (Reported) Lorazepam 0.5 Mg Tablet, 1 EACH PO HS, (Reported) Lovastatin 40 Mg Tablet, 1 EACH PO DAILY WITH SUPPER, (Reported) Tramadol HCl 50 Mg Tablet, 50 MG PO Q12H PRN for PAIN Prescribed by: GOVIND BEAUCHAMP on 07/11/16 1308 [Nifedical Xl] , 30 MG PO DAILY, (Reported) Patient Home Medication List Home Medication List Reviewed: Yes (SCOTTY BERTRAND APRN) Review of Systems Review of Systems Constitutional: see HPI Eyes: No Symptoms Reported Ears, Nose, Mouth, Throat: no symptoms reported Respiratory: see HPI, cough Cardiovascular: no symptoms reported Genitourinary: no symptoms reported Musculoskeletal: no symptoms reported Skin: no symptoms reported Psychiatric/Neurological: No Symptoms Reported Endocrine: No Symptoms Reported Hematologic/Lymphatic: No Symptoms Reported (SCOTTY BERTRAND APRN) Past Eswezbr-Xvobxb-Mornpk Hx Patient Social History Tobacco Use?: No Smokeless Tobacco Frequency: Never a User Substance use?: No Alcohol Use?: No Pt feels they are or have been: No (SCOTTY BERTRAND APRN) Immunizations Up To Date Tetanus Booster (TDap): Less than 5yrs COVID19 Vaccine 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 (SCOTTY BERTRAND APRN) Seasonal Allergies Seasonal Allergies: No (SCOTTY BERTRAND APRN) Past Medical History Surgeries: Yes (LEFT KIDNEY REMOVED, SKIN CANCER REMOVED x30 ) Appendectomy, Vasectomy Respiratory: No Pneumonia Cardiac: Yes High Cholesterol, Hypertension Neurological: No Reproductive Disorders: No Sexually Transmitted Disease: No HIV/AIDS: No Gastrointestinal: Yes (CONSTIPATION) Chronic Constipation Musculoskeletal: No Endocrine: No Loss of Vision: Bilateral Hearing Impairment: Denies Cancer: Yes Skin, Melanoma Psychosocial: No Integumentary: Yes (SKIN LESIONS) Blood Disorders: No Adverse Reaction/Blood Tranf: No (SCOTTY BERTRAND APRN) Physical Exam Vital Signs Vital Signs - First Documented (PARMJIT MOORE MD) Vital Signs Capillary Refill : Less Than 3 Seconds (SCOTTY BERTRAND APRN) Height, Weight, BMI Height: 5'11.00" Weight: 160lbs. 0.0oz. [id number]; 22.00 BMI Method:Stated General Appearance: WD/WN, no apparent distress, other (Alert oriented talkative no distress. Heart rates 55 sinus. Blood pressure is fine. 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 Moves all extremities with equal strength.) HEENT: PERRL/EOMI, normal ENT inspection Neck: non-tender, full range of motion Respiratory: lungs clear, normal breath sounds, no respiratory distress, no accessory muscle use Cardiovascular: regular rate, rhythm, no murmur Gastrointestinal: normal bowel sounds, soft Extremities: normal range of motion, non-tender Neurologic/Psychiatric: alert, normal mood/affect, oriented x 3 Crainal Nerves: normal hearing, normal speech, PERRL Skin: normal color, warm/dry (SCOTTY BERTRAND APRN) Focused Exam Lactate Level 02/27/21 11:56: Lactic Acid Level 1.00 (PARMJIT MOORE MD) Lactic Acid Level Laboratory Tests Test 02/27/21 11:56 Lactic Acid Level 1.00 MMOL/L (0.50-2.00) (PARMJIT MOORE MD) Progress/Results/Core Measures Results/Orders Lab Results Laboratory Tests Test 02/27/21 11:56 02/27/21 12:11 Range/Units White Blood Count 9.5 4.3-11.0 10^3/uL Red Blood Count 4.27 L 4.30-5.52 10^6/uL Hemoglobin 13.1 L 13.3-17.7 g/dL Hematocrit 41 40-54 % Mean Corpuscular Volume 95 80-99 fL Mean Corpuscular Hemoglobin 31 25-34 pg Mean Corpuscular Hemoglobin Concent 32 32-36 g/dL Red Cell Distribution Width 13.8 10.0-14.5 % Platelet Count 208 130-400 10^3/uL Mean Platelet Volume 10.0 9.0-12.2 fL Immature Granulocyte % (Auto) 0 % Neutrophils (%) (Auto) 42 42-75 % Lymphocytes (%) (Auto) 47 H 12-44 % Monocytes (%) (Auto) 6 0-12 % Eosinophils (%) (Auto) 4 0-10 % Basophils (%) (Auto) 1 0-10 % Neutrophils # (Auto) 4.0 1.8-7.8 10^3/uL Lymphocytes # (Auto) 4.5 H 1.0-4.0 10^3/uL Monocytes # (Auto) 0.6 0.0-1.0 10^3/uL Eosinophils # (Auto) 0.4 H 0.0-0.3 10^3/uL Basophils # (Auto) 0.1 0.0-0.1 10^3/uL Immature Granulocyte # (Auto) 0.0 0.0-0.1 10^3/uL Sodium Level 140 135-145 MMOL/L Potassium Level 4.6 3.6-5.0 MMOL/L Chloride Level 107 98-107 MMOL/L Carbon Dioxide Level 23 21-32 MMOL/L Anion Gap 10 5-14 MMOL/L Blood Urea Nitrogen 56 H 7-18 MG/DL Creatinine 2.18 H 0.60-1.30 MG/DL Estimat Glomerular Filtration Rate 29 BUN/Creatinine Ratio 26 Glucose Level 99 70-105 MG/DL Lactic Acid Level 1.00 0.50-2.00 MMOL/L Calcium Level 8.9 8.5-10.1 MG/DL Corrected Calcium 8.9 8.5-10.1 MG/DL Total Bilirubin 0.3 0.1-1.0 MG/DL Aspartate Amino Transf (AST/SGOT) 16 5-34 U/L Alanine Aminotransferase (ALT/SGPT) 11 0-55 U/L Alkaline Phosphatase 65 40-136 U/L Total Protein 7.0 6.4-8.2 GM/DL Albumin 4.0 3.2-4.5 GM/DL Urine Color YELLOW Urine Clarity CLEAR Urine pH 5.5 5-9 Urine Specific [place] 1.020 1.016-1.022 Urine Protein 1+ H NEGATIVE Urine Glucose (UA) NEGATIVE NEGATIVE Urine Ketones NEGATIVE NEGATIVE Urine Nitrite NEGATIVE NEGATIVE Urine Bilirubin NEGATIVE NEGATIVE Urine Urobilinogen 0.2 < = 1.0 MG/DL Urine Leukocyte Esterase NEGATIVE NEGATIVE Urine RBC (Auto) NEGATIVE NEGATIVE Urine RBC NONE /HPF Urine WBC NONE /HPF Urine Squamous Epithelial Cells RARE /HPF Urine Crystals NONE /LPF Urine Bacteria NEGATIVE /HPF Urine Casts NONE /LPF Urine Mucus NEGATIVE /LPF Urine Culture Indicated NO SARS-CoV-2 RNA (RT-PCR) Not Detected Not Detectrose mary (PARMJIT MOORE MD) Vital Signs/I&O 02/27/21 02/27/21 02/27/21 02/27/21 11:45 11:45 14:00 14:06 Temp 35.8 35.8 Pulse 58 58 55 55 Resp 13 13 18 18 B/P (MAP) 163/80 (107) 163/80 (107) 167/91 167/91 Pulse Ox 97 97 97 97 O2 Delivery Room Air Room Air Room Air Room Air (PARMJIT MOORE MD) Blood Pressure Mean: 107 Departure Communication (Admissions) 1400-Remains alert and oriented. Very pleasant, No arrhythmia. Has been up to bathroom. He had a skin tear to the posterior left elbow. This occurred during one of his falls about 2 days ago. I debrided the devitalized tissues, applied antibiotic ointment then gauze then Coban. (SCOTTY BERTRAND APRN) Impression Primary Impression: Skin tear of left upper extremity Additional Impression: Syncopal episodes Disposition: HOME, SELF-CARE Condition: Stable Departure-Patient Inst. Decision time for Depature: 14:01 (SCOTTY BERTRAND APRN) Referrals: XANDER HAGEN MD (PCP/Family) Primary Care Physician Patient Instructions: NO INSTRUCTIONS GIVEN Add. Discharge Instructions: 1. Call Dr. Hagen tomorrow for follow-up. Return to ER for any concerning symptoms. Change the dressing on the arm every day or every other day. All discharge instructions reviewed with patient and/or family. Voiced understanding. ATTENDING PHYSICIAN NOTE: I was physically present as attending physician in the emergency department during the care of this patient, but I was not directly involved in the decision making or delivery of care for this patient. (PARMJIT MOORE MD) Copy Copies To 1: XANDER HAGEN MD, PETER J APRN Feb 27, 2021 12:55 PARMJIT MOORE MD Feb 27, 2021 19:27
--- NOTE | 2021-02-27 13:22 | Diagnostic Imaging Report ---
Indication: Altered mental status. Time of exam: 1:14 PM Comparison is made with prior chest from 12/06/2018. The heart size is normal. The pulmonary vascularity is unremarkable. The lungs are clear. No infiltrate, effusion or pneumothorax is detected. Impression: No acute cardiopulmonary process is detected. Dictated by: Dictated on workstation # [id number]
--- NOTE | 2021-02-27 13:27 | Diagnostic Imaging Report ---
INDICATION: Altered mental status TECHNIQUE: Routine non contrast-enhanced axial images were obtained from the skull base to the vertex. Auto Exposure Controls were utilized during the CT exam to meet ALARA standards for radiation dose reduction COMPARISON: 12/06/2018 FINDINGS: The ventricles and cortical sulci are diffusely prominent, compatible with age-related volume loss. There are confluent areas of abnormal, low attenuation in the periventricular white matter. This is consistent with chronic small vessel ischemic changes. There is no midline shift or mass-effect. No acute intra-axial hemorrhage is seen. There are no abnormal areas of increased or decreased density to suggest acute hemorrhage or edema. No extra-axial masses or collections are present. The bony calvarium is intact. The visualized paranasal sinuses show minimal scattered mucosal thickening of the ethmoid air cells. The mastoid air cells are clear. IMPRESSION: 1. No acute intracranial abnormality. No CT evidence of mass, acute infarct or intracranial hemorrhage. 2. Chronic small vessel ischemic changes in the deep white matter. Dictated by: Dictated on workstation # [id number]
[2021-02-27 14:06] VITALS: BP 167/91
== END 2021-02-27 14:06 | disposition home or self-care (01) ==
LOC: EDUNIT# 11:31 → ER 11:33
DX: S41.112A Laceration without foreign body of left upper arm, initial encounter (principal); R55 Syncope and collapse; I10 Essential (primary) hypertension; E78.00 Pure hypercholesterolemia, unspecified; Z20.822 Contact with and (suspected) exposure to COVID-19; Z79.899 Other long term (current) drug therapy; Z79.82 Long term (current) use of aspirin; W07.XXXA Fall from chair, initial encounter
CPT/HCPCS: 36415; 70450; 71045; 80053; 81000; 83605; 85025; 87040; 87077; 87088; 87636

== ENCOUNTER 2021-04-11 10:57 | Outpatient (CLI) | payer MEDICARE ==
[~2021-04-11] VITALS: Ht 177.8 cm; Wt 74.5 kg
[2021-04-11 11:08] VITALS: BP 127/69
[2021-04-11] MEDS ORDERED: NS IV 500 ML 500 ML ONE (11:14)
[2021-04-11 11:33] LABS: BASOPHILS # (AUTO) 0.1 10^3/uL (0.0-0.1); BASOPHILS % (AUTO) 1 % (0-10); EOSINOPHILS # (AUTO) 0.3 10^3/uL (0.0-0.3); EOSINOPHILS % (AUTO) 4 % (0-10); HEMATOCRIT 40 % (40-54); HEMOGLOBIN 12.9 g/dL (13.3-17.7); LYMPHOCYTES # (AUTO) 4.4 10^3/uL (1.0-4.0); LYMPHOCYTES % (AUTO) 47 % (12-44); MEAN CORPUSCULAR HEMOGLOBIN 31 pg (25-34); MEAN CORPUSCULAR HGB CONC 33 g/dL (32-36); MEAN CORPUSCULAR VOLUME 95 fL (80-99); MEAN PLATELET VOLUME 9.9 fL (9.0-12.2); MONOCYTES # (AUTO) 0.6 10^3/uL (0.0-1.0); MONOCYTES % (AUTO) 6 % (0-12); NEUTROPHILS # (AUTO) 3.9 10^3/uL (1.8-7.8); NEUTROPHILS % (AUTO) 42 % (42-75); PLATELET COUNT 203 10^3/uL (130-400); WHITE BLOOD COUNT 9.3 10^3/uL (4.3-11.0)
[2021-04-11 11:54] LABS: ALBUMIN 3.9 GM/DL (3.2-4.5); BILIRUBIN,TOTAL 0.5 MG/DL (0.1-1.0); CREATININE SERUM 2.11 MG/DL (0.60-1.30); POTASSIUM 4.4 MMOL/L (3.6-5.0)
[2021-04-11] MEDS ORDERED: NS IV 500 ML 500 ML IV SCH (12:00)
== END 2021-04-11 12:15 ==
LOC: SDC 10:57
PROVIDERS: ATTEND Internal Medicine
DX: I95.9 Hypotension, unspecified (principal)
CPT/HCPCS: 36415; 80053; 85025; 96360

== ENCOUNTER 2022-03-22 01:47 | Emergency (ER) | payer MEDICARE ==
[~2022-03-22] VITALS: Ht 177.8 cm; Wt 74.5 kg
--- NOTE | 2022-03-22 02:25 | ED Fall/Injury ---
General Chief Complaint: Trauma-Non Activation Stated Complaint: FALL Nursing Triage Note: TO ED VIA [facility] TO ROOM 5 AFTER FALL AT HOME. C/O TAILBONE PAIN AND LEFT LEG PAIN. DENIES HITTING HEAD, DENIES LOC. Source: patient, EMS History of Present Illness Date Seen by Provider: Mar 22, 2022 Time Seen by Provider: 01:50 Initial Comments PT ARRIVES VIA EMS FROM HOME PT HAD AN UNWITNESSED FALL JUST PRIOR TO ARRIVAL PT STATES HE WAS IN THE BATHROOM, WASHING HIS HANDS, AND BENT OVER AND LOST HIS BALANCE AND FELL BACKWARD AND LANDED ON HIS BACK AND HIS LEFT SIDE DENIES HITTING HIS HEAD OR HAVING LOSS OF CONSCIOUSNESS DENIES NECK PAIN DOES C/O LOW BACK AND TAILBONE PAIN C/O PAIN TO LEFT ARM FROM SHOULDER TO WRIST C/O PAIN TO LEFT LEG FROM HIP TO KNEE. PT HAS MINOR ABRASION/SKIN TEAR TO DORSAL ASPECT OF LEFT HAND OVER 5TH MCP JOINT ALSO HAS MINOR ABRASION TO BACK OF HEAD, NEAR CROWN. NO CHEST PAIN OR SHORTNESS OF BREATH OR PAIN WITH BREATHING NO ABDOMINAL PAIN NO NAUSEA/VOMITING NO HEADACHE/HEAD PAIN NO PARESTHESIAS OR MOTOR DEFICITS NO DIZZINESS DENIES SYNCOPE RATES PAIN 1-2/ AT THIS TIME HAS NOT HAD ANYTHING FOR PAIN PT IS NOT ON ASPIRIN OR BLOOD THINNERS LAST TETANUS IS UNKNOWN PT STATES HE DOES NOT HAVE A WALKER OR CANE, BUT IS SUPPOSED TO BE GETTING A WALKER--STATES HE HAS FALLEN SEVERAL TIMES IN THE LAST COUPLE OF MONTHS--NO REPORTED INJURIES FROM ANY OF THOSE FALLS HAS STARTED GETTING HOME PHYSICAL THERAPY, AND THEY WERE THERE TODAY PT IS AND LIVES WITH HIS 2 [id number] PT STATES HE HAS HAD COVID VACCINE X 4 PCP: DR. HAGEN Allergies and Home Medications Allergies Coded Allergies: adhesive (Unverified Allergy, Unknown, 01/14/15) codeine (Unverified Allergy, Unknown, 01/14/15) Penicillins (Unverified Adverse Reaction, Mild, GIVES HIM TUNNEL VISION, 04/15/15) Patient Home Medication List Home Medication List Reviewed: Yes Aspirin (Aspirin Ec 81 Mg) 81 Mg Tabec, 81 MG PO DAILY, (Reported) Entered as Reported by: ABDI WYMAN on 06/04/13 0918 Atenolol (Tenormin 25 Mg) 25 Mg Tablet, 1 EACH PO DAILY, (Reported) Entered as Reported by: ABDI WYMAN on 06/04/13917 Lisinopril (Prinivil) 20 Mg Tablet, 20 MG PO DAILY, (Reported) Entered as Reported by: ABDI WYMAN on 06/04/13917 Lorazepam (Ativan) 0.5 Mg Tablet, 1 EACH PO HS, (Reported) Entered as Reported by: ABDI WYMAN on 06/04/13917 Lovastatin (Lovastatin 40 Mg) 40 Mg Tablet, 1 EACH PO DAILY WITH SUPPER, (Reported) Entered as Reported by: ABDI WYMAN on 06/04/13917 Tramadol HCl (Tramadol HCl) 50 Mg Tablet, 50 MG PO Q12H PRN for PAIN Prescribed by: GOVIND BEAUCHAMP on 07/11/16 1308 [Nifedical Xl] , 30 MG PO DAILY, (Reported) Entered as Reported by: ABDI WYMAN on 06/04/13917 Review of Systems Review of Systems Constitutional: no symptoms reported Eyes: No Symptoms Reported Ears, Nose, Mouth, Throat: no symptoms reported Respiratory: no symptoms reported Cardiovascular: no symptoms reported Gastrointestinal: no symptoms reported Genitourinary: no symptoms reported Musculoskeletal: see HPI Skin: see HPI Psychiatric/Neurological: No Symptoms Reported; Denies Headache, Denies Numbness, Denies Paresthesia, Denies Tingling, Denies Weakness Past Cehccmk-Javavh-Xpomkg Hx Patient Social History Tobacco Use?: No Substance use?: No Alcohol Use?: Yes Alcohol type: Beer Alcohol Frequency: Rarely Immunizations Up To Date Tetanus Booster (TDap): Less than 5yrs COVID19 Vaccine Health Commissioner: [facility] HAS HAD 4 TOTAL VACCINES Seasonal Allergies Seasonal Allergies: No Past Medical History Surgeries: Yes (LEFT KIDNEY REMOVED, SKIN CANCER REMOVED x30 ) Appendectomy, Nephrectomy, Vasectomy Respiratory: Yes Pneumonia Cardiac: Yes (CAROTID DISEASE) High Cholesterol, Hypertension, Rheumatic Fever Neurological: Yes TIA Reproductive Disorders: No Sexually Transmitted Disease: No HIV/AIDS: No Genitourinary: Yes (LEFT NEPHRECTOMY FOR CYSTS) Gastrointestinal: Yes (CONSTIPATION) Chronic Constipation Musculoskeletal: No Endocrine: No HEENT: No Loss of Vision: Bilateral Hearing Impairment: Denies Cancer: Yes Skin Did You Recieve Any Treatments: Yes What Type of Treatment Did You: Surgical Intervention MULTIPLE BASAL CELL CANCERS REMOVED Psychosocial: No Integumentary: Yes (SKIN CANCERS) Blood Disorders: No Adverse Reaction/Blood Tranf: No Physical Exam Vital Signs Vital Signs - First Documented Capillary Refill : Less Than 3 Seconds Height, Weight, BMI Height: 5'11.00" Weight: 160lbs. 0.0oz. [id number]; 23.00 BMI Method:Stated General Appearance: WD/WN, no apparent distress HEENT: PERRL/EOMI, normal ENT inspection, TMs normal, pharynx normal, other (MULTIPLE SCABBED WOUNDS TO FACE AND SCALP. MINOR ABRASION TO POSTERIOR SCALP, NEAR CROWN--NO BLEEDING, NO BRUISING OR SWELLING. MILD TENDERNESS. ) Neck: non-tender Cardiovascular: regular rate, rhythm Respiratory: chest non-tender, normal breath sounds Gastrointestinal: non tender, soft Back: no CVA tenderness, other (TENDERNESS TO LOWER LUMBAR AREA AND SACRUM/COCCYX AREA) Extremities: normal capillary refill, other (TENDERNESS TO LEFT ARM, FROM SHOULDER TO WRIST. NO SWELLING OR DEFORMITY. MINOR ABRASION/SKIN TEAR TO DORSAL ASPECT OF LEFT HAND OVER 5TH MCP JOINT, BUT NO TENDERNESS TO HAND. MOTOR/SENSORY/VASCULAR INTACT TO LEFT ARM. RIGHT ARM IS NON-TENDER, NO EXTERNAL EVIDENCE OF TRAUMA AND MOTOR/SENSORY/VASCULAR INTACT. LEFT LEG IS TENDER FROM HIP TO KNEE, BUT NO EXTERNAL EVIDENCE OF TRAUMA. AND MOTOR/SENSORY/VASCULAR INTACT. RIGHT LEG IS NON-TENDER AND NO EXTERNAL EVIDENCE OF TRAUMA. MOTOR/SENSORY/VASCULAR INTACT. ) Neurologic/Psychiatric: family engagement specialist II-XII nml as tested, no motor/sensory deficits, alert, normal mood/affect, oriented x 3 Skin: normal color, warm/dry, other ( ABOVE) [place] Coma Score Best Eye Response: (4) Open Spontaneously Best Verbal Response: (5) Oriented Best Motor Response: (6) Obeys Commands [place] Total: 15 Progress/Results/Core Measures Results/Orders My Orders Orders - GUILLE LEE DO Ct Head/Cervical Spine Wo (03/22/22 01:56) Ct Thoracic/Lumbar Spine Wo (03/22/22 01:56) Ct Pelvis Wo (03/22/22 01:56) Chest 1 View, Ap/Pa Only (03/22/22 01:56) Forearm, Left, 2 Views (03/22/22 01:56) Humerus, Left, 2 Views (03/22/22 01:56) Femur, Left, 2 Views (03/22/22 01:56) Pelvis With Left Hip 2-3 Views (03/22/22 01:56) Vital Signs/I&O 03/22/22 03/22/22 01:52 01:52 Temp 36.0 Pulse 63 Resp 16 B/P (MAP) 173/102 (125) Pulse Ox 97 O2 Delivery Room Air Room Air Blood Pressure Mean: 125 Progress Progress Note : Progress Note NO DETERIORATION IN PT'S CONDITION DURING ER STAY PT HAD NO COMPLAINTS DURING ER STAY, AND SLEPT THROUGH MOST OF ER STAY FEMALE FAMILY 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 MARKED DELAY IN OBTAINING CT REPORTS. 0444--CALLED [facility] REGARDING WHEN WE MIGHT RECEIVE CT REPORTS. SHOULD BE NEXT IN LINE TO BE READ. 0520--CALLED [facility] AGAIN, STILL HAVE NOT RECEIVED CT HEAD/CERVICAL SPINE REPORTS. THEY WILL FAX REPORT NOW. Diagnostic Imaging Comments [facility]RA[facility]--ALL PENDING RADIOLOGIST REVIEW: CXR--NO ACUTE PROCESS LEFT HUMERUS--NO ACUTE PROCESS LEFT FOREARM--NO ACUTE PROCESS PELVIS AND LEFT HIP--NO ACUTE PROCESS LEFT FEMUR--NO ACUTE PROCESS CT HEAD/CERVICAL SPINE--PER [facility] VIA FAX AT 0522 NO ACUTE PROCESS, CHRONIC DEGENERATIVE CHANGES CT THORACIC/LUMBAR SPINE--PER [facility] VIA FAX AT 0515 NO ACUTE PROCESS, CHRONIC DEGENERATIVE CHANGES. CT PELVIS--PER [facility] VIA FAX AT 0452 NO ACUTE PROCESS, MILD WALL THICKENING OF RECTUM-CORRELATE WITH FOR MILD PROCTITIS. . Reviewed: Reviewed by Me Departure Impression Primary Impression: UNWITNESSED FALL FROM STANDING Additional Impressions: Minor head injury without loss of consciousness NECK AND BACK STRAIN SACRUM AND COCCYX CONTUSION Contusion of left upper arm Contusion of left forearm Contusion of left hip and thigh Minor abrasion Disposition: 01 HOME, SELF-CARE Condition: Stable Departure-Patient Inst. Decision time for Depature: 05:25 Referrals: XANDER HAGEN MD (PCP/Family) Primary Care Physician Patient Instructions: Back Muscle Strain (DC), Contusion (DC), Minor Head Injury, Adult ED, Neck Sprain (DC), Preventing Falls in Older Adults Add. Discharge Instructions: HOME, REST TYLENOL NEEDED FOR PAIN FOLLOW UP WITH DR. HAGEN IN 3-4 DAYS FOR FURTHER CARE All discharge instructions reviewed with patient and/or family. Voiced understanding. GUILLE LEE DO Mar 22, 2022 02:25
[2022-03-22 05:37] VITALS: BP 165/95
--- NOTE | 2022-03-22 06:51 | Diagnostic Imaging Report ---
Indication: Left forearm pain AP and lateral views of left forearm are obtained. There is no evidence of acute fracture or malalignment. Numerous surgical clips are seen along the lateral aspect of the mid forearm. Rather advanced degenerative changes are seen at the radiocarpal joint. No lytic or sclerotic lesion is identified. IMPRESSION: No acute left forearm abnormality is identified. Dictated by: Dictated on workstation # [id number]
--- NOTE | 2022-03-22 07:33 | Diagnostic Imaging Report ---
PROCEDURE: CT head and CT cervical spine without contrast. TECHNIQUE: Multiple contiguous axial images were obtained through the brain and cervical spine without the use of intravenous contrast. Sagittal and coronal reformations through the cervical spine were then performed. Auto Exposure Controls were utilized during the CT exam to meet ALARA standards for radiation dose reduction. INDICATION: Fall with head and neck injury CT HEAD: COMPARISON: 02/27/2021 Ventricles and sulci remain prominent without evidence of acute hemorrhage. There is no abnormal mass effect or shift of midline structures. 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 Low-density deep white matter is not changed. Calvarium is intact and the visualized paranasal sinuses are clear. IMPRESSION: Stable chronic findings in the brain without CT evidence of acute intracranial abnormality. CT CERVICAL SPINE: Cervical spinal curvature and alignment are unremarkable. There is advanced narrowing of cervical disc spaces with endplate spurring and sclerosis. Degenerative facet arthropathy is also present however there is no evidence of an acute fracture or malalignment and no paraspinous hematoma is seen. IMPRESSION: Diffuse cervical spondylosis without CT evidence of acute cervical spinal abnormality. Dictated by: Dictated on workstation # [id number]
--- NOTE | 2022-03-22 07:47 | Diagnostic Imaging Report ---
PROCEDURE: CT thoracic and lumbar spine without contrast. TECHNIQUE: Multiple contiguous axial images were obtained through the thoracic and lumbar spine without the use of intravenous contrast. Sagittal and coronal reformations were then performed. All CT scans use one or more of the following dose optimizing techniques: automated exposure control, MA and/or KvP adjustment based on a patient size and exam type, or iterative reconstruction. INDICATION: Trauma with back pain Thoracic and lumbar spinal curvature and alignment are unremarkable. There is mild diffuse disc space narrowing. This is most pronounced at the L3-L4, L4-L5 and L5-S1 levels. Vertebral body heights are generally maintained and there is no evidence of paraspinous hematoma. Incidental note is made of left adrenal gland adenoma and moderate aortoiliac atherosclerotic calcification. There is also possible bladder diverticulum which is partially included on this exam IMPRESSION: No CT evidence of acute thoracic or lumbar spinal abnormality. Note is made of moderate spondylosis most pronounced in the lower lumbar region. Dictated by: Dictated on workstation # [id number]
--- NOTE | 2022-03-22 08:03 | Diagnostic Imaging Report ---
AP chest at 238h. INDICATION: Fell The heart size is within normal limits and stable when compared to 02/27/2021. In the interval since the prior study a roughly 2 cm rounded area of increased density has developed along the periphery of the left midlung. While this could be secondary to a small focus of pneumonia/atelectasis the possibility that this is related to a neoplastic mass should certainly be considered as well. CT of the chest would be recommended for further evaluation. The lungs are otherwise clear. There is no sign of a contusion or pneumothorax. The mediastinum is not widened. The osseous structures are intact. IMPRESSION: 1. There is no evidence for an acute cardiopulmonary abnormality. 2. The nodular density along the periphery left midlung is of uncertain etiology. Considerations and recommendations as above. Dictated by: Dictated on workstation # [id number]
--- NOTE | 2022-03-22 08:04 | Diagnostic Imaging Report ---
Left humerus at 239 INDICATION: Trauma AP and lateral views were obtained. There are no prior studies available for comparison. There is no fracture, dislocation or acute bony abnormality evident. The shoulder and elbow joint seen fairly well-maintained, particularly given the patient's advanced age. The soft tissues are unremarkable. IMPRESSION: There is no evidence for an acute bony abnormality of the left humerus. Dictated by: Dictated on workstation # [id number]
--- NOTE | 2022-03-22 08:05 | Diagnostic Imaging Report ---
Pelvis and left hip at 243h. INDICATION: Trauma Single AP view of the pelvis and AP and lateral views of the left hip were obtained. There are no prior studies available for comparison. There is no fracture, dislocation or acute bony abnormality evident. 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 The soft tissues are unremarkable. IMPRESSION: 1. There is no evidence for an acute bony abnormality. 2. If clinical concern regarding an occult bony injury of the pelvis exists, then CT would be recommended for further study. Dictated by: Dictated on workstation # [id number]
--- NOTE | 2022-03-22 08:20 | Diagnostic Imaging Report ---
Left femur at 244h. INDICATION: Trauma AP and lateral views were obtained. There are no prior studies available for comparison. There is no fracture, dislocation or acute bony abnormality evident. There is moderate degenerative disease of the hip and knee joints. The soft tissues are unremarkable. IMPRESSION: There is no evidence for an acute bony abnormality. Dictated by: Dictated on workstation # [id number]
--- NOTE | 2022-03-22 08:21 | Diagnostic Imaging Report ---
PROCEDURE: CT pelvis without contrast. TECHNIQUE: Multiple contiguous axial images were obtained through the pelvis without the use of intravenous contrast. Sagittal and coronal reformations were performed. Auto Exposure Controls were utilized during the CT exam to meet ALARA standards for radiation dose reduction. INDICATION: Fell, pelvic pain. The plain film examination of the pelvis performed prior to the study failed to show any sign of an acute bony abnormality. On this exam, there is no fracture, dislocation or acute bony abnormality identified either. 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 There is no pelvic mass or free fluid collection identified. The urinary bladder and prostate gland are grossly unremarkable. IMPRESSION: 1. There is no evidence for an acute bony abnormality. 2. If clinical concern regarding an underlying abnormality persists and further imaging is desired, then MRI would be recommended. 3. These results were discussed with Dr. Pagan in the Emergency Room at the time of this dictation. Dictated by: Dictated on workstation # [id number]
== END 2022-03-22 05:37 | disposition home or self-care (01) ==
LOC: EDUNIT# 01:47 → ER 01:48
DX: S09.90XA Unspecified injury of head, initial encounter (principal); S16.1XXA Strain of muscle, fascia and tendon at neck level, initial encounter; S39.012A Strain of muscle, fascia and tendon of lower back, initial encounter; S40.022A Contusion of left upper arm, initial encounter; S50.12XA Contusion of left forearm, initial encounter; S70.02XA Contusion of left hip, initial encounter; S70.12XA Contusion of left thigh, initial encounter; S00.01XA Abrasion of scalp, initial encounter; S60.417A Abrasion of left little finger, initial encounter; W18.30XA Fall on same level, unspecified, initial encounter; Y92.009 Unspecified place in unspecified non-institutional (private) residence as the place of occurrence of the external cause
CPT/HCPCS: 70450; 71045; 72125; 72128; 72131; 72192; 73060; 73090; 73552